=== PATIENT | male | born 1965 | race Hispanic/Latino ===

== ENCOUNTER 2017-04-01 10:34 | Outpatient (CLI) | payer MEDICARE ==
--- NOTE | 2017-04-01 11:45 | XRay Report ---
Chest 2 views: History: Wheezing. Findings: Normal cardiomediastinal silhouette the trachea is midline. No consolidation, pneumothorax or pleural effusion. Impression: No acute cardiopulmonary findings.
== END 2017-04-01 10:35 | disposition home or self-care (01) ==
LOC: SPVIMAG 10:34
PROVIDERS: ATTEND Internal Medicine Hematology & Oncology
DX: R05 Cough (principal); R06.2 Wheezing; C18.2 Malignant neoplasm of ascending colon; G60.9 Hereditary and idiopathic neuropathy, unspecified; R50.9 Fever, unspecified
CPT/HCPCS: 71020